=== PATIENT | female | born 1970 | race Caucasian/White ===

== ENCOUNTER 2017-05-21 10:39 | Emergency (ER) | payer SELFPAY ==
[2017-05-21] MEDS: LIDOCAINE 1% PF 2 ML VIAL. INJ ×2 (11:46)
[2017-05-21] MEDS: DIPHTH,PERTUSS(ACELL),TET TOX 0.5 ML DISP.SYRIN. VAX IM ×2 (11:48)
[2017-05-21 12:07] LABS: ADD MAN DIFF? NO
[2017-05-21 12:10] LABS: BASO # 0.1 x10^3/uL (0.0-0.2); BASO % 1 % (0-3); EOS # 0.1 x10^3/uL (0.0-0.7); EOS % 1 % (0-3); HEMATOCRIT 41.1 % (36.0-47.0); HEMOGLOBIN 14.2 g/dL (12.0-15.5); LYMPH # 2.4 x10^3/uL (1.0-4.8); LYMPH % 25 % (24-48); MEAN CORPUSCULAR HEMOGLOBIN 30 pg (25-35); MEAN CORPUSCULAR HGB CONC 34 g/dL (31-37); MEAN CORPUSCULAR VOLUME 88 fL (79-100); MONO # 1.2 x10^3/uL (0.0-1.1); MONO % 12 % (0-9); NEUT # 6.1 x10^3uL (1.8-7.7); NEUT % 61 % (31-73); PLATELET COUNT 378 x10^3/uL (140-400); RED BLOOD COUNT 4.65 x10^6/uL (3.50-5.40); RED CELL DISTRIBUTION WIDTH 12.5 % (11.5-14.5); WHITE BLOOD COUNT 9.9 x10^3/uL (4.0-11.0)
[2017-05-21 12:25] LABS: ANION GAP 6 (6-14); BLOOD UREA NITROGEN 11 mg/dL (7-20); BUN/CREATININE RATIO 12 (6-20); CALCIUM 9.1 mg/dL (8.5-10.1); CARBON DIOXIDE 31 mmol/L (21-32); CHLORIDE 101 mmol/L (98-107); CREATININE 0.9 mg/dL (0.6-1.0); GFR 66.8; GLUCOSE 101 mg/dL (70-99); POTASSIUM 3.8 mmol/L (3.5-5.1); SODIUM 138 mmol/L (136-145)
[2017-05-21 12:31] LABS: ALBUMIN 3.3 g/dL (3.4-5.0); ALBUMIN/GLOBULIN RATIO 0.8 (1.0-1.7); ALK PHOS 99 U/L (46-116); ALT (SGPT) 14 U/L (14-59); AST (SGOT) 16 U/L (15-37); TOTAL BILIRUBIN 0.1 mg/dL (0.2-1.0); TOTAL PROTEIN 7.3 g/dL (6.4-8.2)
[2017-05-22] MEDS ORDERED: cefTRIAXone IV Push 1 GM VIAL. IVP ×2 (13:00)
== END 2017-05-21 13:13 | disposition home or self-care (01) ==
LOC: ER 10:39
DX: L02.01 Cutaneous abscess of face (principal); R59.1 Generalized enlarged lymph nodes; J44.9 Chronic obstructive pulmonary disease, unspecified; F12.10 Cannabis abuse, uncomplicated
CPT/HCPCS: 10060; 36415; 80053; 85025; 87071; 87075; 87205; 90471; 90715; 96365; 99284-25; J0690

== ENCOUNTER 2018-05-13 13:17 | Emergency (ER) | payer SELFPAY ==
[~2018-05-13] VITALS: Ht 157.5 cm; Wt 43.1 kg
[~2018-05-13 13:17] MED LIST: CLIN300C8 PO; SULF1TAB24 PO
[2018-05-13 13:20] VITALS: BP 91/52
--- NOTE | 2018-05-13 14:40 | RAD ---
EXAM: Left hand, 3 views. HISTORY: Fall. Pain and swelling. COMPARISON: None. FINDINGS: 3 views of the left hand are obtained. There is no fracture, dislocation or subluxation. IMPRESSION: No acute osseous finding. Electronically signed by: Leena Hugo MD (05/13/2018 2:37 PM) [id number]
[2018-05-13] MEDS ORDERED: IBUP-1007 PO (14:50)
--- NOTE | 2018-05-13 14:50 | PHYS DOC ---
Past Medical History Past Medical History: COPD (BRISEYDA,EKATERINA Villavicencio VICE PRESIDENT CORPORATE COMMUNICATIONS) Past Surgical History: No Surgical History ([facility] V[facility] PRES[facility] CORPORATE COMMUNICATIONS) Alcohol Use: None Drug Use: None ([facility] PRES[facility]POR[facility] COMMUNICATIONS) Adult General Chief Complaint Chief Complaint: HAND PROBLEM HPI HPI Patient is a 47 year old female who presents with fell 2 weeks ago on the left hand and now has some tingling and pain to the fifth pinky finger. Patient has pain at the median nerve knee palm and wrist of her hand. She states the hand was swollen after the fall but has since returned to normal. (EKATERINA RAIN VICE PRESIDENT CORPORATE COMMUNICATIONS) Review of Systems Review of Systems Constitutional: Denies fever or chills [] Eyes: Denies change in visual acuity, redness, or eye pain [] HENT: Denies nasal congestion or sore throat [] Respiratory: Denies cough or shortness of breath [] Cardiovascular: No additional information not addressed in HPI [] GI: Denies abdominal pain, nausea, vomiting, bloody stools or diarrhea [] : Denies dysuria or hematuria [] Musculoskeletal: Mid hand pain with 5th finger tingling or numbness. Denies back pain or joint pain [] Integument: Denies rash or skin lesions [] Neurologic: Denies headache, focal weakness or sensory changes [] All other systems were reviewed and found to be within normal limits, except as documented in this note. (MARLOEKATERINA VICE PRESIDENT CORPORATE COMMUNICATIONS) Allergies Allergies Allergies Coded Allergies Type Severity Reaction Last Updated Verified No Known Drug Allergies 05/21/17 No (REYNALDO COWART MD) Physical Exam Physical Exam Constitutional: Well developed, well nourished, no acute distress, non-toxic appearance. [] HENT: Normocephalic, atraumatic, bilateral external ears normal, oropharynx moist, no oral exudates, nose normal. [] Eyes: PERRLA, EOMI, conjunctiva normal, no discharge. [] Neck: Normal range of motion, no tenderness, supple, no stridor. [] Cardiovascular:Heart rate regular rhythm, no murmur [] Lungs & Thorax: Bilateral breath sounds clear to auscultation [] Abdomen: Bowel sounds normal, soft, no tenderness, no masses, no pulsatile masses. [] Skin: Warm, dry, no erythema, no rash. [] Back: No tenderness, no CVA tenderness. [] Extremities: mid palm hand tenderness, no cyanosis, no clubbing, ROM intact, no edema. [] Neurologic: Alert and oriented X 3, normal motor function, normal sensory function, no focal deficits noted. [] Psychologic: Affect normal, judgement normal, mood normal. [] (EKATERINA RAIN APRN) Current Patient Data Vital Signs Vital Signs Date Time Temp Pulse Resp B/P (MAP) Pulse Ox O2 Delivery O2 Flow Rate FiO2 05/13/18 13:20 97.9 96 18 91/52 (65) 95 Room Air 97.9 (REYNALDO COWART MD) EKG EKG [] (EKATERINA RAIN APRN) Radiology/Procedures Radiology/Procedures [] (EKATERINA RAIN APRN) Impressions: [facility] [address] [place] [address] IMAGING REPORT Signed PATIENT: MURTAZA NELSON ACCOUNT: [id number] : 1970 LOCATION: ER AGE: 47 SEX: F EXAM STATUS: REG ER ORD. PHYSICIAN: EKATERINA RAIN APRN REASON: injury,fall 2 weeks ago, pain 5th digit. PROCEDURE: HAND LEFT 3V EXAM: Left hand, 3 views. HISTORY: Fall. Pain and swelling. COMPARISON: None. FINDINGS: 3 views of the left hand are obtained. There is no fracture, dislocation or subluxation. IMPRESSION: No acute osseous finding. Electronically signed by: Leena Jaramillo MD (05/13/2018 2:37 PM) [id number] DICTATED and SIGNED BY: LEENA JARAMILLO MD DATE: 05/13/18 2161 (EKATERINA RAIN APRN) Course & Med Decision Making Course & Med Decision Making Patient is a 47 year old female who presents with fell 2 weeks ago on the left hand and now has some tingling and pain to the fifth pinky finger. Patient has pain at the median nerve knee palm and wrist of her hand. She states the hand was swollen after the fall but has since returned to normal. Positive Tinel's sign. Patient has some pain with palpation to the mid palm directly below the ring finger with some numbness or pain that shoots up to the fifth finger on the left hand. There is no swelling or bruising or deformity to the hand. Radial pulse present. Cap refill less than 3 seconds. Skin pink warm and dry. Patient has intact range of motion in all finger joints and wrist. Alert and oriented. Straight shows no acute findings. Patient should take ibuprofen for pain will be given an Dinesh wrap for her hand. Patient likely has a contusion to her hand and has inflamed the median nerve in her hand. (EKATERINA RAIN APRN) Course & Med Decision Making Staff Physician Addendum: I was working in the ER during the course of this patient's visit. I was available for consultation as needed, but I was not directly involved in the care of this patient. (REYNALDO COWART MD) Dragon Disclaimer Dragon Disclaimer This electronic medical record was generated, in whole or in part, using a voice recognition dictation system. (EKATERINA RAIN APRN) Departure Departure Impression: Primary Impression: Hand contusion Disposition: HOME, SELF-CARE Condition: STABLE Referrals: COURTNEY LEONG MD (PCP) Patient Instructions: Hand Contusion Additional Instructions: Follow up with primary care provider. Use Tylenol or Ibuprofen for pain. Scripts Ibuprofen (IBUPROFEN) 600 Mg Tablet 600 MG PO PRN Q6HRS PRN for INFLAMMATION, #10 TAB Prov: EKATERINA RAIN APRN 05/13/18 Problem Qualifiers Primary Impression: Hand contusion Encounter type: initial encounter Laterality: left Qualified Codes: S60.222A - Contusion of left hand, initial encounter EKATERINA RAIN APRN May 13, 2018 14:50 REYNALDO COWART MD May 14, 2018 09:21
== END 2018-05-13 14:55 | disposition home or self-care (01) ==
LOC: ER 13:17
DX: S60.222A Contusion of left hand, initial encounter (principal); J44.9 Chronic obstructive pulmonary disease, unspecified; W19.XXXA Unspecified fall, initial encounter; Y93.89 Activity, other specified; Y92.89 Other specified places as the place of occurrence of the external cause; Y99.8 Other external cause status
CPT/HCPCS: 73130; 99283